=== PATIENT | female | born 1980 | race American Indian/Alaskan Native ===

== ENCOUNTER 2021-05-08 20:44 | Inpatient (IN) | payer MEDICAID ==
[2021-05-08] MEDS ORDERED: LACTATED RINGERS 1,000 ML IV ONE (21:30)
[2021-05-08] MEDS ORDERED: MAGNESIUM SULFATE 4 GM/100 ML BAG IV ONE (22:00)
[2021-05-08] MEDS: BETAMET ACET/BETAMET NA PH 6 MG/ML INJ 5 ML MDV IM SCH (22:33)
[2021-05-08] MEDS: LACTATED RINGERS 1,000 ML IV SCH (22:33)
[2021-05-08 22:49] LABS: Alanine Aminotransferase 5 units/L (7-56); Uric Acid 5.8 mg/dL (3.5-7.6)
[2021-05-08 22:55] LABS: Hepatitis C Virus Antibody Nonreactive (NonReactive)
[2021-05-08] MEDS: MAGNESIUM SULFATE 40GM/1000ML 40 GM/1,000 ML BAG IV SCH (23:00)
[2021-05-08 23:30] LABS: Basophils % (Auto) 0.3 % (0.0-1.8); Eosinophils # (Auto) 0.6 K/mm3 (0.0-0.4); Eosinophils % (Auto) 5.2 % (0.0-4.3); Hematocrit 36.8 % (30.3-42.9); Hemoglobin 12.3 gm/dl (10.1-14.3); Mean Corpuscular HGB Conc 33 % (30-34); Mean Corpuscular Volume 79 fl (79-97); Monocytes # (Auto) 0.9 K/mm3 (0.0-0.8); Monocytes % (Auto) 7.2 % (0.0-7.3); Platelet Count 202 K/mm3 (140-440); Red Blood Count 4.68 M/mm3 (3.65-5.03); Red Cell Distribution Width 14.5 % (13.2-15.2)
[2021-05-09] MEDS ORDERED: FAMOTIDINE 20 MG/2 ML INJ IV SCH
[2021-05-09] MEDS: ONDANSETRON 4 MG/2 ML INJ IV PRN ×3 (00:18→18:13)
[2021-05-09] MEDS: ACETAMINOPHEN 325 MG TAB PO PRN ×3 (00:18→18:13)
[2021-05-09] MEDS: ALUM-MAG HYDROXIDE-SIMETHICONE 200-200-20MG/5ML ORAL LIQD 30 ML PO PRN ×2 (00:18→20:21)
--- NOTE | 2021-05-09 01:00 | Ultrasound Report ---
ULTRASOUND OBSTETRIC INDICATION / CLINICAL INFORMATION: COMPLETE OB SONOGRAM. Clinical Gestational Age (GA): 34 weeks 2 days TECHNIQUE: Transabdominal. COMPARISON: None available. FINDINGS: There is a single intrauterine . Biparietal Diameter = 8.0 cm = 32 weeks, 2 day(s). Head Circumference = 28.5 cm = 31 weeks, 2 day(s). Abdominal Circumference = 24.6 cm = 28 weeks, 6 day(s). Femur Length = 5.7 cm = 30 weeks, 0 day(s). Average Ultrasound Age (AUA) = 30 weeks, 4 day(s). Heart Rate: 141 beats per minute. Estimated Weight in grams (if calculated): 1443 Estimated Weight Growth Percentile (if calculated): Position: cephalic. Cervix: closed. Length in cm (if measured): 3.0 Placenta: Anterior right lateral, grade 1 and free of the os. Amniotic Fluid Volume: decreased Amniotic Fluid Index (KAREN) in cm (if calculated): 5.9. Maternal Adnexa: No significant abnormality. IMPRESSION: 1. Single, living intrauterine with estimated sonographic age of 30 weeks, 4 day(s). 2. Oligohydramnios Signer Name: Fab Dillard MD Signed: 05/09/2021 12:56 AM Workstation Name: [id number]
--- NOTE | 2021-05-09 01:03 | Ultrasound Report ---
ULTRASOUND OBSTETRIC LIMITED ULTRASOUND BIOPHYSICAL PROFILE INDICATION / CLINICAL INFORMATION: WELLBEING. COMPARISON: OB ultrasound same day FINDINGS: BREATHING MOVEMENT = 2 GROSS BODY MOVEMENT = 2 TONE = 2 QUALITATIVE AMNIOTIC FLUID VOLUME = 2 TOTAL BIOPHYSICAL SCORE = 8/8 AMNIOTIC FLUID INDEX (cm) = see separate OB ultrasound report PRESENTATION: Cephalic. HEART RATE (beats per minute): 141 ADDITIONAL FINDINGS: None. IMPRESSION: 1. Biophysical Score = 8/8 Signer Name: Fab Dillard MD Signed: 05/09/2021 12:58 AM Workstation Name: [id number]
[2021-05-09] MEDS: hydrALAZINE 20 MG/1 ML INJ IV PRN ×2 (01:07→01:37)
[2021-05-09 01:40] LABS: Bacteria,Urine 1+ /HPF (Negative); Bilirubin,Urine NEG (Negative); Blood,Urine NEG (Negative); Color,Urine Yellow (Yellow); Mucus,Urine FEW /HPF; Urobilinogen,Urine < 2.0 mg/dL (<2.0)
[2021-05-09 01:47] LABS: Amphetamine Screen,Urine PRESUMPTIVE POSITIVE; Benzodiazepines Screen,Urine PRESUMPTIVE NEGATIVE; Cannabinoid Screen,Urine PRESUMPTIVE POSITIVE; Cocaine Screen,Urine PRESUMPTIVE NEGATIVE; Methadone Screen,Urine PRESUMPTIVE NEGATIVE; Opiate Screen,Urine PRESUMPTIVE NEGATIVE
[2021-05-09] MEDS ORDERED: SODIUM CHLORIDE 0.9% 1000 ML 1,000 ML IV ONE (03:59)
[2021-05-09] MEDS: PRENATAL VIT27-FE FUMARATE-FOLIC ACID VIT TAB PO SCH (10:18)
[2021-05-09] MEDS: LACTATED RINGERS 1,000 ML IV SCH ×2 (10:19→21:54)
--- NOTE | 2021-05-09 13:53 | History and Physical Report ---
History of Present Illness Date of examination: 05/09/21 Date of admission: 05/08/21 21:52 Chief complaint: nausea, vomiting, "something just was wrong with my body" History of present illness: Pt is a 40 year old -[place] female G16 P 1 9 5 10 CLIVE 06/17/21 by 26 wk ultrasound at [facility] per pt who presents with headache, contractions, nausea and vomiting, and an overall sense that something was not right. She has not had care this . The patient notes no history of labor, but that her deliveries were due to induction secondary to "blood pressure." She is unsure if her blood pressure is elevated outside of . She has one child with spina bifida. She also reports anxiety and depression and asks for help managing these issues. Since admission, she has been started on magnesium sulfate for seizure pr ophylaxis, a betamethasone course was initiated, 24 hour urine collection was initiated, and Labetalol 400 mg PO BID was initiated. Past History Past Medical History: asthma, hypertension Past Surgical History: cholecystectomy, other (hiatal hernia repair) Family/Genetic History: hypertension Social history: smoking - Obstetrical History Expected Date of Delivery: 06/17/21 Actual Gestation: 34 Week(s) 3 Day(s) : 16 Para: 10 Hx # Term Pregnancies: 1 Number of Pregnancies: 9 Spontaneous Abortions: 2 Induced : 3 Number of Living Children: 10 Medications and Allergies Allergies Allergy/AdvReac Type Severity Reaction Status Date / Time meloxicam [From Mobic] Allergy Intermediate Hives Verified 05/08/21 23:19 amoxicillin [Amoxicillin] AdvReac Hives Verified 05/08/21 23:20 ketorolac tromethamine AdvReac Hives Verified 05/08/21 23:20 [From Toradol] Penicillins AdvReac Hives Verified 05/08/21 23:20 Home Medications Medication Instructions Recorded Confirmed Last Taken Type Albuterol Mdi (or & Nicu Only) 2 puff IH QID PRN 11/28/13 11/28/13 Unknown History [Proair] Cyclobenzaprine HCl [Flexeril] 10 mg PO TID #20 tablet 11/29/13 Unknown Rx HYDROcodone/APAP 5-325 [[place] 1 each PO Q6HR PRN #10 tablet 03/09/14 Unknown Rx 5/325 mg] Active Meds: Active Medications Acetaminophen (Acetaminophen 325 Mg Tab) 650 mg PO Q4H PRN PRN Reason: Pain MILD(1-3)/Fever >100.5/MURRAY Last Admin: 05/09/21 12:18 Dose: 650 mg Documented by: Al Hydrox/Mg Hydrox/Simethicone (Alum-Mag Hydroxide-Simethicone [id number]/5ml Oral Liqd 30 Ml) 30 ml PO Q4H PRN PRN Reason: Indigestion Last Admin: 05/09/21 00:18 Dose: 30 ml Documented by: Betamethasone Acet/Betameth SodPhos (Betamet Acet/Betamet Na Ph 6 Mg/Ml Inj 5 Ml Mdv) 12 mg IM Q24H [facility] Stop: 05/09/21 22:01 Last Admin: 05/08/21 22:33 Dose: 12 mg Documented by: Docusate Sodium (Docusate Sodium 100 Mg Cap) 100 mg PO Q12H PRN PRN Reason: Constipation Famotidine (Famotidine 20 Mg/2 Ml Inj) 20 mg IV QDAY@2200 [facility] Last Admin: 05/09/21 03:20 Dose: 20 mg Documented by: Hydralazine HCl (Hydralazine 20 Mg/1 Ml Inj) 5 mg IV Q30MIN PRN PRN Reason: Hypertension Last Admin: 05/09/21 01:37 Dose: 5 mg Documented by: Lactated Ringer's (Lactated Ringers) 1,000 mls @ 125 mls/hr IV DIRECT [facility] Last Admin: 05/09/21 10:19 Dose: 75 mls/hr Documented by: Magnesium Sulfate (Magnesium Sulfate 40gm/1000ml) 40 gm in 1,000 mls @ 50 mls/hr IV DIRECT [facility] Last Admin: 05/08/21 23:00 Dose: 2 gm/hr, 50 mls/hr Documented by: Labetalol HCl (Labetalol 200 Mg Tab) 400 mg PO BID [facility] Last Admin: 05/09/21 10:16 Dose: 400 mg Documented by: Multivitamins/Iron/Calcium ( [id number]-Fc Fumarate-Folic Acid Vit Tab) 1 each PO QDAY [facility] Last Admin: 05/09/21 10:18 Dose: 1 each Documented by: Ondansetron HCl (Ondansetron 4 Mg/2 Ml Inj) 4 mg IV Q4H PRN PRN Reason: Nausea And Vomiting Last Admin: 05/09/21 12:18 Dose: 4 mg Documented by: Review of Systems All systems: negative - Vital Signs Vital signs: Vital Signs Temp Pulse BP 98.1 F 81 173/98 05/08/21 21:04 05/08/21 21:04 05/08/21 21:04 Temp Pulse Resp BP Pulse Ox 97.9 F 77 16 117/84 100 05/09/21 07:45 05/09/21 13:47 05/09/21 12:28 05/09/21 13:36 05/09/21 13:47 - Physical Exam Breasts: Positive: deferred Abdomen: Positive: soft (gravid, obese) Uterus: Positive: enlarged (gravid ) Extremities: Positive: normal. Negative: edema - Obstetrical FHR: auscultation normal Uterine Contraction Monitor Mode: External Uterine Contraction Pattern: Absent Uterine Tone Measurement Phase: Resting Results Result Diagrams: 05/08/21 21:48 05/08/21 21:48 Abnormal lab results 05/08/21 05/08/21 Range/Units 21:48 21:48 WBC 11.9 H (4.5-11.0) K/mm3 MCH 26 L (28-32) pg Eos % (Auto) 5.2 H (0.0-4.3) % [place] # (Auto) 0.9 H (0.0-0.8) K/mm3 Eos # (Auto) 0.6 H (0.0-0.4) K/mm3 Seg Neutrophils % 70.3 H (40.0-70.0) % Seg Neutrophils # 8.4 H (1.8-7.7) K/mm3 ALT 5 L (7-56) units/L All other labs normal. Assessment and Plan A: IUP at 34w3d Chronic HTN vs superimposed Preeclampsia Headache Advanced Maternal Age No Care Asthma Obesity Grandmultiparity Anxiety Depression Urine drug screen positive for marijuana and amphetamines GBS Unknown P: Admit to antepartum service Magnesium Sulfate for seizure prophylaxis Betamethasone course for lung maturity 24 hour urine collection MFM consult once 24 hour urine complete Psych consult Continue to monitor maternal and status
[2021-05-09] MEDS: PANTOPRAZOLE 40 MG INJ IV SCH (15:30)
[2021-05-09] MEDS: MAGNESIUM SULFATE 40GM/1000ML 40 GM/1,000 ML BAG IV SCH (18:15)
[2021-05-09] MEDS: BUTALB/ACETAMINOPHEN/CAFFEINE TAB PO PRN (21:41)
[2021-05-09] MEDS: ZOLPIDEM 5 MG TAB PO PRN (21:41)
[2021-05-09] MEDS: BETAMET ACET/BETAMET NA PH 6 MG/ML INJ 5 ML MDV IM SCH (21:45)
[2021-05-09 22:57] LABS: Creatinine,Urine 29.1 mg/dL (0.1-20.0)
[2021-05-10] MEDS: ALUM-MAG HYDROXIDE-SIMETHICONE 200-200-20MG/5ML ORAL LIQD 30 ML PO PRN ×2 (01:46→20:03)
[2021-05-10] MEDS: BUTALB/ACETAMINOPHEN/CAFFEINE TAB PO PRN ×2 (08:10→20:03)
--- NOTE | 2021-05-10 09:24 | Consultation ---
History of Present Illness Consult date: 05/10/21 Requesting physician: KAYDEN URIAS Reason for consult: gestational hypertension History of present illness: Patient HARDIK KING : 78 Attending: Dr. Tong Corn Shucker: Nasima Mitchell M.D. Date of Consultation: Monday, May 10, 2021 Indication for Admission: IUP at ~34 weeks 1 days gestation Chronic hypertension; Superimposed preeclampsia. Elevation in blood pressure Headache No care Oligohydramnios Apparent growth restriction (1443 gm at 34 weeks) Labile blood pressure Proteinuria. Not a candidate for outpatient management. We recommend DELIVERY rather than expectant management. CURRENT PRESENTATION: Thank you for your recent consultation regarding the above named patient. As you are aware, this is a 40 year old para 1,9,5,10 at ~ 34 weeks 1 days based on an CLIVE of 06/17/21) who is currently admitted due to chronic hypertension with possible superimposed preeclampsia. Patient has had NO care. At the time of admission she received magnesium sulfate and Labetalol. The patient 24 hour urine is 395 mg . Following admission the patient had elevated blood pressure and had new onset signs of preeclampsia including headache. PAST OBSTETRICAL HISTORY: See notes in chart. FT x 1 x 9 SAB x 2 VTOP x 3 NO care., PREVIOUS MEDICAL HISTORY: CHTN with history of RIOS History of deliveries x 9 CURRENT MEDICATION: Labetalol (since admission) Magnesium sulfate PHYSICAL EXAM: o Recent BPs 173/98 (prior to Labetalol) o 127/62 (after Labetalol) o See Notes in chart. o HEENT: Negligible periorbital edema o Abdomen: Soft, Gravid, obese, non-distended, fundal height c/w EGA o General: Patient admits to good movement. FHR Tracing: Category 1 Available Admission Labs: See report in chart. WBC: 11.9 HGB: 12.3 HCT: 36.8 PLT: 202 AST: PENDING ALT: PENDING See Recent Notes in chart. Past History Past Medical History: asthma, hypertension Past Surgical History: cholecystectomy, other (hiatal hernia repair) Family/Genetic History: hypertension - Obstetrical History : 15 Medications and Allergies Allergies Allergy/AdvReac Type Severity Reaction Status Date / Time meloxicam [From Mobic] Allergy Intermediate Hives Verified 05/08/21 23:19 amoxicillin [Amoxicillin] AdvReac Hives Verified 05/08/21 23:20 ketorolac tromethamine AdvReac Hives Verified 05/08/21 23:20 [From Toradol] Penicillins AdvReac Hives Verified 05/08/21 23:20 Home Medications Medication Instructions Recorded Confirmed Last Taken Type Albuterol Mdi (or & Nicu Only) 2 puff IH QID PRN 11/28/13 11/28/13 Unknown History [Proair] Cyclobenzaprine HCl [Flexeril] 10 mg PO TID #20 tablet 11/29/13 Unknown Rx HYDROcodone/APAP 5-325 [[place] 1 each PO Q6HR PRN #10 tablet 11/29/13 Unknown Rx 5/325 mg] Active Meds: Active Medications Acetaminophen (Acetaminophen 325 Mg Tab) 650 mg PO Q4H PRN PRN Reason: Pain MILD(1-3)/Fever >100.5/MURRAY Last Admin: 05/09/21 18:13 Dose: 650 mg Documented by: Acetaminophen/Butalbital/Caffeine (Butalb/Acetaminophen/Caffeine Tab) 1 tab PO Q4H PRN PRN Reason: Headache Last Admin: 05/10/21 08:10 Dose: 1 tab Documented by: Al Hydrox/Mg Hydrox/Simethicone (Alum-Mag Hydroxide-Simethicone [phone]/5ml Oral Liqd 30 Ml) 30 ml PO Q4H PRN PRN Reason: Indigestion Last Admin: 05/10/21 01:46 Dose: 30 ml Documented by: Docusate Sodium (Docusate Sodium 100 Mg Cap) 100 mg PO Q12H PRN PRN Reason: Constipation Hydralazine HCl (Hydralazine 20 Mg/1 Ml Inj) 5 mg IV Q30MIN PRN PRN Reason: Hypertension Last Admin: 05/09/21 01:37 Dose: 5 mg Documented by: Lactated Ringer's (Lactated Ringers) 1,000 mls @ 125 mls/hr IV DIRECT DELTA Last Admin: 05/09/21 21:54 Dose: 75 mls/hr Documented by: Magnesium Sulfate (Magnesium Sulfate 40gm/1000ml) 40 gm in 1,000 mls @ 50 mls/hr IV DIRECT DELTA Last Admin: 05/09/21 18:15 Dose: 2 gm/hr, 50 mls/hr Documented by: Labetalol HCl (Labetalol 200 Mg Tab) 400 mg PO BID [facility] Last Admin: 05/09/21 21:39 Dose: 400 mg Documented by: Multivitamins/Iron/Calcium ( [id number]-Yn Fumarate-Folic Acid Vit Tab) 1 each PO QDAY [facility] Last Admin: 05/09/21 10:18 Dose: 1 each Documented by: Ondansetron HCl (Ondansetron 4 Mg/2 Ml Inj) 4 mg IV Q4H PRN PRN Reason: Nausea And Vomiting Last Admin: 05/09/21 18:13 Dose: 4 mg Documented by: Pantoprazole Sodium (Pantoprazole 40 Mg Inj) 40 mg IV QDAY [facility] Last Admin: 05/09/21 15:30 Dose: 40 mg Documented by: Zolpidem Tartrate (Zolpidem 5 Mg Tab) 10 mg PO QHS PRN PRN Reason: Sleep Last Admin: 05/09/21 21:41 Dose: 10 mg Documented by: - Vital Signs Vital signs: Vital Signs Temp Pulse BP 98.1 F 81 173/98 05/08/21 21:04 05/08/21 21:04 05/08/21 21:04 Temp Pulse Resp BP Pulse Ox 98 F 85 18 135/68 98 05/10/21 04:35 05/10/21 08:02 05/10/21 04:35 05/10/21 08:02 05/10/21 08:05 Results Result Diagrams: 05/08/21 21:48 05/08/21 21:48 Abnormal lab results 05/09/21 05/09/21 05/09/21 Range/Units 13:25 13:25 19:03 Magnesium 6.20 H 6.00 H (1.7-2.3) mg/dL Urine Creatinine 29.1 H (0.1-20.0) mg/dL Ur Total Protein 24 Hr (2-200) mg/dL 05/10/21 Range/Units 01:00 Magnesium (1.7-2.3) mg/dL Urine Creatinine (0.1-20.0) mg/dL Ur Total Protein 24 Hr 346.50 H (2-200) mg/dL All other labs normal. Assessment and Plan ULTRASOUND AT [facility]: Cephalic Anterior placenta KAREN: 5.9 (decreased) AUA: 30 weeks. 1443 gm (c/w IUGR) ASSESSMENT IUP at ~34 weeks 1 days gestation Chronic hypertension; Superimposed preeclampsia. Elevation in blood pressure Headache No care Oligohydramnios Apparent growth restriction (1443 gm at 34 weeks) Labile blood pressure Proteinuria. Not a candidate for outpatient management. We recommend DELIVERY rather than expectant management. We recommend DELIVERY rather than expectant management. RECOMMENDATION: 1. At 34+ weeks gestation; it would appear that there minimal benefit to an expectant management protocol to prolong gestation in order to improve outcome without increasing maternal morbidity. 2. We are in agreement with Magnesium sulfate for eclampsia prophylaxis and neuroprotection. 3. Patient has previously received steroids. 4. CONTRAINDICATIONS TO EXPECTANT MANAGEMENT: a. Outpatient elevation of blood pressure on antihypertensive medication b. No care c. Elevated blood pressure d. growth restriction. e. Neurological symptoms (headache, dizziness, blurred vision, etc) 5. Accordingly we would recommend DELIVERY for any signs of severe superimposed preeclampsia (see below). 6. Stabilize blood pressure 7. I've indicated to the patient that there are a number of medical complications which would require early delivery as a general rule for any gestation. I've indicated that unexplained vaginal bleeding, spontaneous labor, -induced hypertension and other complications would require delivery before an elective delivery. 8. I've also indicated the recommendations from the [employer] published in the ACOG committee opinion number 560 regarding early term delivery. As well as recent studies from the Journal Obstetrics and Gynecology published in September [address] Triplett et al indicate that for chronic hypertension with signs of severe preeclampsia should be delivered BEFORE 34 weeks of gestation. 9. Based on the fact that this patient has superimposed preeclampsia with severe symptoms including headache as well as elevated systolic blood pressure we would recommend DELIVERY of this rather than continued expectant management. 10. REFERENCE: Medically indicated late- and early-term deliveries. Committee Opinion No. 560. [employer]. Obstet Gynecol 2013;121:07917. 11. Accordingly we would classify this patient as having severe superimposed preeclampsia and would recommend DELIVERY rather than continued expectant management. 12. As noted above; with a confirmed diagnosis of preeclampsia would recommend proceeding with DELIVERY in this patient in view of the multiple factors which place this at risk for adverse outcome. 13. It would appear the risks for prolongation (ie severe preeclampsia, maternal sezures, placental abruption, HELLP, uteroplacental insufficiency and possible demise in utero) clearly outweigh the the oretical concerns regarding immaturity. Thank you for allowing us to participate in the care of this patient. We look forward to the opportunity to assist in her continued management. If you have any questions, we may be reached at [phone]. Nasima Mitchell M.D.
[2021-05-10] MEDS: LACTATED RINGERS 1,000 ML IV SCH (10:54)
[2021-05-10] MEDS: ACETAMINOPHEN 325 MG TAB PO PRN (11:46)
[2021-05-10] MEDS: PRENATAL VIT27-FE FUMARATE-FOLIC ACID VIT TAB PO SCH (11:47)
--- NOTE | 2021-05-10 12:07 | Consultation ---
History of Present Illness - Reason for Consult Consult date: 05/10/21 Reason for consult: depression - History of Present Psychiatric Illness Samanta Jenkins is a 40y/o female patient who came to the hospital because she wasn't feeling well. The patient says she is from [place] and was traveling. She says says she stopped here to get evaluated because she felt something wasn't right. She says she is 8 months . The patient is crying and says she did not expect to be giving here. She does not live in [place]. She says they told her they needed to take the baby because of her blood pressure. The patient also says she's adjusting to a new relationship. She says her of many years of a heart attack. She says so all of this is adding to her stress. The patient denies SI/HI or hallucinations of any kind. She says "I don't want to hurt myself or hurt nobody." The patient and I had a long talk about things to help her reduce her stress. She stopped crying and states that she felt a lot better after speaking to me. She says she has a history of anxiety and depression. The patient says she takes vistaril, ambien and zoloft. She says she's been compliant with her meds. Encouraged the patient to start therapy. PAST PSYCHIATRIC HISTORY Diagnoses: Depression, anxiety Suicide attempts or Self-harm behavior: Denies Prior psychiatric hospitalizations: Denies Substance Abuse history: Denies Previous psychiatric medications tried: zoloft, ambien, vistaril Outpatient treatment: Yes PAST MEDICAL HISTORY: None reported Family Psychiatric History: Mother " unknown" SOCIAL HISTORY Marital Status: Living Arrangements: with children Employment Status: Unemployed Access to guns/weapons: None reported Education: History of Abuse: None reported Legal History: None reported REVIEW OF SYSTEMS Constitutional: Negative for weight loss ENT: Negative for stridor Respiratory: Negative for cough or hemoptysis All other systems reviewed and are negative MENTAL STATUS EXAMINATION General Appearance and Behavior: Age appropriate, good hygiene, wearing appropriate clothes,good eye contact, cooperative Cooperation: cooperative Mood: overwhelmed Affect and affective range: Tearful Thought Process: Goal directed Thought Content: None Speech: normal tone and pace Suicidal Ideation: Denies Homicidal Ideation: Denies Hallucinations: Denies Delusions: Denies Impulse Control: unimpaired Insight and Judgment: Limited insight and judgement Memory: Normal Attention: Normal Orientation: Alert, oriented Assessment and Plan Generalized Anxiety Disorder Major Depressive Disorder Treatment Continue currently prescribed meds by current provider Start therapy Sitter: Defer to primary Medical: per primary Disposition: Do not recommend acute psychiatric inpatient treatment Will sign off. Thanks. Case staffed with Dr. Flower Medications and Allergies Allergies Allergy/AdvReac Type Severity Reaction Status Date / Time meloxicam [From Mobic] Allergy Intermediate Hives Verified 05/08/21 23:19 amoxicillin [Amoxicillin] AdvReac Hives Verified 05/08/21 23:20 ketorolac tromethamine AdvReac Hives Verified 05/08/21 23:20 [From Toradol] Penicillins AdvReac Hives Verified 05/08/21 23:20 Home Medications Medication Instructions Recorded Confirmed Last Taken Type Albuterol Mdi (or & Nicu Only) 2 puff IH QID PRN 11/28/13 11/28/13 Unknown History [Proair] Cyclobenzaprine HCl [Flexeril] 10 mg PO TID #20 tablet 11/29/13 Unknown Rx HYDROcodone/APAP 5-325 [[place] 1 each PO Q6HR PRN #10 tablet 11/29/13 Unknown Rx 5/325 mg] Active Meds: Active Medications Acetaminophen (Acetaminophen 325 Mg Tab) 650 mg PO Q4H PRN PRN Reason: Pain MILD(1-3)/Fever >100.5/MURRAY Last Admin: 05/10/21 11:46 Dose: 650 mg Documented by: Acetaminophen/Butalbital/Caffeine (Butalb/Acetaminophen/Caffeine Tab) 1 tab PO Q4H PRN PRN Reason: Headache Last Admin: 05/10/21 08:10 Dose: 1 tab Documented by: Al Hydrox/Mg Hydrox/Simethicone (Alum-Mag Hydroxide-Simethicone [id number]/5ml Oral Liqd 30 Ml) 30 ml PO Q4H PRN PRN Reason: Indigestion Last Admin: 05/10/21 01:46 Dose: 30 ml Documented by: Docusate Sodium (Docusate Sodium 100 Mg Cap) 100 mg PO Q12H PRN PRN Reason: Constipation Hydralazine HCl (Hydralazine 20 Mg/1 Ml Inj) 5 mg IV Q30MIN PRN PRN Reason: Hypertension Last Admin: 05/09/21 01:37 Dose: 5 mg Documented by: Lactated Ringer's (Lactated Ringers) 1,000 mls @ 125 mls/hr IV DIRECT DELTA Last Admin: 05/10/21 10:54 Dose: 75 mls/hr Documented by: Magnesium Sulfate (Magnesium Sulfate 40gm/1000ml) 40 gm in 1,000 mls @ 50 mls/hr IV DIRECT DELTA Last Admin: 05/09/21 18:15 Dose: 2 gm/hr, 50 mls/hr Documented by: Labetalol HCl (Labetalol 200 Mg Tab) 400 mg PO BID [facility] Last Admin: 05/10/21 09:47 Dose: 400 mg Documented by: Multivitamins/Iron/Calcium ( Sql58-Cr Fumarate-Folic Acid Vit Tab) 1 each PO QDAY [facility] Last Admin: 05/10/21 11:47 Dose: 1 each Documented by: Ondansetron HCl (Ondansetron 4 Mg/2 Ml Inj) 4 mg IV Q4H PRN PRN Reason: Nausea And Vomiting Last Admin: 05/09/21 18:13 Dose: 4 mg Documented by: Pantoprazole Sodium (Pantoprazole 40 Mg Inj) 40 mg IV QDAY [facility] Last Admin: 05/09/21 15:30 Dose: 40 mg Documented by: Zolpidem Tartrate (Zolpidem 5 Mg Tab) 10 mg PO QHS PRN PRN Reason: Sleep Last Admin: 05/09/21 21:41 Dose: 10 mg Documented by: Mental Status Exam - Vital signs Last Vital Signs Temp 98 F 05/10/21 04:35 Pulse 85 05/10/21 08:02 Resp 18 05/10/21 04:35 BP 135/68 05/10/21 08:02 Pulse Ox 98 05/10/21 08:05 Results Result Diagrams: 05/08/21 21:48 05/08/21 21:48 Abnormal lab results 05/09/21 05/09/21 05/09/21 Range/Units 13:25 13:25 19:03 Magnesium 6.20 H 6.00 H (1.7-2.3) mg/dL Urine Creatinine 29.1 H (0.1-20.0) mg/dL Ur Total Protein 24 Hr (2-200) mg/dL 05/10/21 Range/Units 01:00 Magnesium (1.7-2.3) mg/dL Urine Creatinine (0.1-20.0) mg/dL Ur Total Protein 24 Hr 346.50 H (2-200) mg/dL All other labs normal.
[2021-05-10] MEDS ORDERED: NALOXONE 0.4 MG/1 ML INJ IV PRN (13:56)
[2021-05-10] MEDS ORDERED: OXYTOCIN 10 UNIT/1 ML INJ IM PRN (13:56)
[2021-05-10] MEDS ORDERED: CARBOPROST TROMETHAMINE 250 MCG/1 ML INJ IM PRN (13:56)
[2021-05-10] MEDS ORDERED: miSOPROStol 200 MCG TAB PR PRN (13:56)
[2021-05-10] MEDS ORDERED: fentaNYL 100 MCG/2 ML INJ IV PRN (13:56)
[2021-05-10] MEDS ORDERED: ePHEDrine SULFATE 50 MG/1 ML INJ IV PRN (13:56)
[2021-05-10] MEDS ORDERED: BUTORPHANOL 2 MG/1 ML INJ IV PRN (13:56)
[2021-05-10] MEDS ORDERED: TERBUTALINE 1 MG/1 ML INJ SUB-Q PRN (13:56)
[2021-05-10] MEDS ORDERED: LOPERAMIDE 2 MG CAP PO PRN (13:56)
[2021-05-10] MEDS ORDERED: LIDOCAINE (2%) 20 MG/1 ML VIAL 20 ML MDV INFILTRATI ONE (13:56)
[2021-05-10] MEDS ORDERED: MINERAL OIL 30 ML ORAL LIQD PO PRN (13:56)
[2021-05-10] MEDS ORDERED: LACTATED RINGERS 1,000 ML IV SCH (14:00)
[2021-05-10] MEDS ORDERED: OXYTOCIN DRIP 30 UNITS/500 ML BAG IV SCH ×2 (14:00)
[2021-05-10] MEDS ORDERED: VANCOMYCIN/NS 1 GM/250 ML 1 GM/250 ML BAG IV SCH (15:00)
[2021-05-10] MEDS ORDERED: DINOPROSTONE 10 MG VAG SUPP VG ONE (16:00)
--- NOTE | 2021-05-10 17:46 | Anesthesia Consultation ---
Anesthesia Consult and Med Hx Date of service: 05/10/21 - Airway Anesthetic Teeth Evaluation: Good ROM Head & Neck: Adequate Mental/Hyoid Distance: Adequate Mallampati Class: Class III Intubation Access Assessment: Probably Good - Pulmonary Exam CTA: Yes - Cardiac Exam Cardiac Exam: RRR - Pre-Operative Health Status ASA Pre-Surgery Classification: ASA2 Proposed Anesthetic Plan: Epidural - Pulmonary Hx Smoking: Yes Hx Asthma: Yes COPD: No Hx Pneumonia: No Hx Sleep Apnea: No - Cardiovascular System Hx Hypertension: Yes (chronic htn) Hx Heart Attack/AMI: No Hx Angina: No - Central Nervous System Hx Seizures: No Hx Psychiatric Problems: Yes (anxiety) - Gastrointestinal Hx Gastroesophageal Reflux Disease: No - Endocrine Hx Renal Disease: No Hx End Stage Renal Disease: No Hx Liver Disease: No Hx Insulin Dependent Diabetes: No Hx Non-Insulin Dependent Diabetes: No Hx Hypothyroidism: No Hx Hyperthyroidism: No - Hematic Hx Anemia: No Hx Sickle Cell Disease: No - Other Systems Hx Alcohol Use: No Hx Obesity: Yes - Additional Comments Anesthesia Medical History Comments: 2 epidurals that didn't work and 1 that resulted in a wet tap.
[2021-05-10] MEDS ORDERED: MAGNESIUM SULFATE 4 GM/100 ML BAG IV ONE ×2 (17:59→19:00)
[2021-05-10] MEDS ORDERED: MAGNESIUM SULFATE 40GM/1000ML 40 GM/1,000 ML BAG IV SCH (19:00)
[2021-05-10] MEDS: MAGNESIUM SULFATE 40GM/1000ML 40 GM/1,000 ML BAG IV SCH (19:00)
[2021-05-10 19:18] LABS: Alanine Aminotransferase 6 units/L (7-56); Uric Acid 5.4 mg/dL (3.5-7.6)
[2021-05-10 19:29] LABS: Hematocrit 36.5 % (30.3-42.9); Mean Corpuscular HGB Conc 33 % (30-34); Mean Corpuscular Volume 80 fl (79-97); Platelet Count 233 K/mm3 (140-440); Red Blood Count 4.56 M/mm3 (3.65-5.03); Red Cell Distribution Width 15.1 % (13.2-15.2)
[2021-05-10] MEDS: hydrALAZINE 20 MG/1 ML INJ IV PRN (20:04)
[2021-05-10] MEDS: ZOLPIDEM 5 MG TAB PO PRN (20:11)
[2021-05-10] MEDS: PANTOPRAZOLE 40 MG INJ IV SCH (21:41)
[2021-05-11] MEDS ORDERED: BICITRA ORAL LIQD 30ML PO ONE (01:03)
[2021-05-11] MEDS ORDERED: GENTAMICIN 0 MG in SODIUM CHLORIDE 0.9% 100 ML IV ONE (01:03)
[2021-05-11] MEDS ORDERED: METOCLOPRAMIDE 10 MG/2 ML INJ IV ONE (01:03)
[2021-05-11] MEDS ORDERED: FAMOTIDINE 20 MG/2 ML INJ IV ONE (01:03)
--- NOTE | 2021-05-11 01:03 | Event Note ---
Date: 05/11/21 Notified by RN with concern for tracing. Tracing reviewed. Category 2 tracing with near absent variability and deep variable decels to the 60s. Plan to proceed with primary section for non-reassuring status.
[2021-05-11] MEDS ORDERED: ONDANSETRON 4 MG/2 ML INJ IV PRN (01:15)
[2021-05-11] MEDS ORDERED: LACTATED RINGERS 1,000 ML IV SCH (01:15)
[2021-05-11] MEDS ORDERED: NALOXONE 0.4 MG/1 ML INJ IV PRN ×2 (01:15→03:39)
[2021-05-11] MEDS ORDERED: NalbUPHINE 10 MG/1 ML INJ IV PRN (01:15)
[2021-05-11] MEDS ORDERED: PROMETHAZINE 25 MG RECT SUPP PR PRN (01:15)
[2021-05-11] MEDS ORDERED: diphenhydrAMINE 50 MG/ML VIAL IV PRN (01:15)
--- NOTE | 2021-05-11 01:15 | Anesthesia Day of Surgery ---
Anesthesia Day of Surgery - Day of Surgery Patient Examined: Yes Patient H&P Reviewed: Yes Patient is NPO: Yes Beta Blockers: No Cardiac Clearance: No Pulmonary Clearance: No Gregory's Test: N/A
[2021-05-11] MEDS ORDERED: ONDANSETRON 4 MG/2 ML INJ ONE (01:22)
[2021-05-11] MEDS ORDERED: BUPIVACAINE/PF (0.5%) 5 MG/1 ML 30 ML VIAL INFILTRATI ONE (01:35)
[2021-05-11] MEDS ORDERED: GENTAMICIN/NS 120MG/100ML 120 MG/100 ML BAG IV ONE (02:00)
[2021-05-11] MEDS ORDERED: OXYTOCIN DRIP 30 UNITS/500 ML BAG IV SCH ×2 (02:00→04:00)
[2021-05-11] MEDS ORDERED: KETAMINE/STERILE WATER 50 MG/ML SYRINGE ONE (02:12)
[2021-05-11] MEDS ORDERED: WATER FOR IRRIG STERILE 1,500 ML BOTTLE IR ONE (02:19)
[2021-05-11] MEDS ORDERED: SODIUM CHLORIDE 0.9% IRR 1,500 ML BOTTLE IR ONE (02:19)
[2021-05-11] MEDS ORDERED: OXYTOCIN 10 UNIT/1 ML INJ ONE (02:28)
[2021-05-11] MEDS ORDERED: ePHEDrine SULFATE 50 MG/1 ML INJ ONE (02:28)
[2021-05-11] MEDS ORDERED: PHENYLEPHRINE/NS 1,000 MCG/10 ML SYRINGE (OR USE) IV ONE (02:28)
[2021-05-11] MEDS ORDERED: MIDAZOLAM 2 MG/2 ML INJ ONE (02:35)
--- NOTE | 2021-05-11 03:27 | Procedure Note ---
OB Delivery Note - Delivery Date of Delivery: 05/11/21 Surgeon: KAYDEN URIAS Estimated blood loss: other (570 mL) - Section Preop diagnosis: nonreassuring FHR tracing Postop diagnosis: same section procedure: section, primary low transverse Disposition: PACU Narrative: Please see operative report - Infant A at 1 minute: 2 at 5 minutes: 8 Infant Gender: Male (1580g (3lb 8oz) @ 0231 am)
--- NOTE | 2021-05-11 03:29 | Operative Report ---
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 Anesthesia: Regional Findings: 1) Viable male , Apgars 2 and 8, weight 1580 g, (3 lb 8 oz) in cephalic presentation 2) Normal-appearing uterus ovaries and tubes Estimated blood loss: 570 mL by QBL IV fluids: 700 mL Urine output: 250 mL, clear at the end of the procedure Drains: Smith to gravity Specimens: Placenta to pathology Complications: None. Counts correct x 3 Disposition: Stable to PACU Indication for procedure: Pt is a 40 year old -Greek G16 P 1 9 5 10 at presents at 34w5d with chronic hypertension with superimposed preeclampsia and recommendation for delivery. During her induction, the tracing developed minimal variability with deep variable decelerations to the 60s remote from delivery. The decision was made to proceed to section. Operation in detail: After the risks, benefits, alternatives and complications were explained to the patient she gave informed consent for the procedure. She was subsequently taken to the operating room where regional anesthesia was noted to be adequate. She was placed in the dorsal supine position with leftward tilt and prepped and draped in a normal sterile fashion. heart tones were noted prior to incision. A timeout was performed. A Pfannenstiel skin incision was made with the knife and carried down to the layer of the fascia with the Bovie. The fascia was incised in the midline and the fascial incision was extended bilaterally with the Bovie. The fascial incision was then stretched. The rectus muscles were then in the midline and partially transected for adequate visualization. The peritoneum was then entered bluntly. The peritoneal incision was extended with good visualization of the bladder. The peritoneal incision was then stretched. An Andry retractor was placed. The bladder blade was then placed. The vesicouterine peritoneum was grasped with smooth pick ups and incised with Metzenbaum scissors . A bladder flap was then created digitally and the bladder blade was replaced. A transverse incision was made in the lower uterine segment with a knife and extended bilaterally with the bandage scissors. Amniotomy was performed with egress of clear fluid. head delivered with ease, followed by shoulders and body. bulb suctioned at delivery. Cord clamped and cut. handed to NICU staff in attendance. The placenta was then delivered manually. The uterus was then exteriorized and cleared of all clots and debris. The hy sterotomy was then reapproximated with 0 Monocryl in a running locked fashion. A second layer of the same suture was used in imbricating fashion. The hysterotomy was inspected and hemostasis was noted. The gutters were irrigated and cleared of all clots and debris. The hysterotomy was again inspected and noted to be hemostatic. The uterus was placed back into the peritoneal cavity. Surgicel was placed over the hysterotomy. The Andry retractor was removed. The peritoneum was reapproximated with 0 Monocryl in a running fashion incorporating the rectus muscles. Surgicel was placed over the rectus muscles. The fascia was reapproximated with 0 Vicryl in a running fashion. The subcutaneous tissue was reapproximated with 3-0 Vicryl in a running fashion. The skin was reapproximated with 3-0 Monocryl in a subcuticular fashion. The incision was then covered with steri strips and a pressure dressing. The procedure was then ended. The patient tolerated the procedure well and was taken to the PACU in stable condition. All instrument, lap, and needle counts were correct 3.
[2021-05-11] MEDS ORDERED: IBUPROFEN 800 MG TAB PO PRN (03:39)
[2021-05-11] MEDS ORDERED: WITCH HAZEL/ GLYCERIN PAD TP PRN (03:39)
[2021-05-11] MEDS ORDERED: LANOLIN/ZINC/DIMETHICONE (LANSINOH) 7 GM TP PRN (03:39)
[2021-05-11] MEDS ORDERED: SIMETHICONE 80 MG CHEW TAB PO PRN (03:39)
[2021-05-11] MEDS ORDERED: HYDROmorphone 1 MG/1 ML INJ IV PRN ×2 (03:39→03:43)
[2021-05-11] MEDS ORDERED: MAGNESIUM HYDROXIDE (MOM) ORAL LIQD UDC PO PRN (03:39)
--- NOTE | 2021-05-11 03:45 | Progress Note ---
Spinal Anesthesia Block - Spinal Anesthesia Block Start Time: 01:45 Stop Time: 02:00 Performed by:: DAVION COBB Procedure: Spinal anesthesia block is being performed for [C/S]. H&P, labs have been reviewed. Patient's questions and concerns have been answered. Informed consent has been performed. Timeout has was performed. Patient in sitting position on side of bed. Sterile prep and drape was performed. 3 mL 1% lidocaine skin wheal at L [3]-L [4]. Needle introducer advanced. 25-gauge spinal needle advanced, [+] CSF [-] blood. [Marcaine 10mg and Precedex 5mcg] Spinal dose was given. All needles removed. Patient tolerated procedure well.
[2021-05-11] MEDS ORDERED: D5W/LACTATED RINGERS 1,000 ML IV SCH (04:00)
[2021-05-11] MEDS: HYDROmorphone 1 MG/1 ML INJ IV PRN ×4 (06:43→19:43)
--- NOTE | 2021-05-11 07:14 | Post Anesthesia Evaluation ---
- Post Anesthesia Evaluation Patient Participated: Yes Airway Patent: Yes Stable Respiratory Function: Yes Nausea/Vomiting: No Temp > 96.8F: Yes Pain Manageable: Yes Adequeate Hydration: Yes Anesthesia Complications: No Block Receding Appropriately: Yes Patient on Ventilator: No
[2021-05-11] MEDS: oxyCODONE /ACETAMINOPHEN 5-325MG TAB PO PRN ×4 (08:52→23:36)
[2021-05-11] MEDS: PRENATAL VIT27-FE FUMARATE-FOLIC ACID VIT TAB PO SCH (10:39)
[2021-05-11] MEDS: PANTOPRAZOLE 40 MG INJ IV SCH (10:39)
[2021-05-11] MEDS: CLINDAMYCIN 600 MG/50 mL 600 MG/50 ML BAG IV SCH ×2 (10:39→17:53)
[2021-05-11] MEDS: BUTALB/ACETAMINOPHEN/CAFFEINE TAB PO PRN (13:34)
[2021-05-11] MEDS: PROMETHAZINE 25 MG TAB PO PRN (13:55)
[2021-05-11 14:51] LABS: Hematocrit 32.2 % (30.3-42.9); Hemoglobin 10.7 gm/dl (10.1-14.3)
[2021-05-11] MEDS: MAGNESIUM SULFATE 40GM/1000ML 40 GM/1,000 ML BAG IV SCH (17:52)
[2021-05-11] MEDS: ZOLPIDEM 5 MG TAB PO PRN (21:17)
[2021-05-12] MEDS ORDERED: MEASLES, MUMPS & RUBELLA 12,500 UNIT/0.5 ML VACCINE SUB-Q ONE (03:40)
[2021-05-12] MEDS: HYDROmorphone 1 MG/1 ML INJ IV PRN (03:56)
[2021-05-12] MEDS ORDERED: TETANUS,DIPH,PERTUSS(ACELL) VACCINE 0.5 ML SYRINGE IM ONE (06:00)
[2021-05-12] MEDS: PROMETHAZINE 25 MG TAB PO PRN (08:11)
[2021-05-12] MEDS: oxyCODONE /ACETAMINOPHEN 5-325MG TAB PO PRN ×3 (08:12→20:35)
[2021-05-12] MEDS: DOCUSATE SODIUM 100 MG CAP PO PRN (13:49)
[2021-05-12] MEDS: PRENATAL VIT27-FE FUMARATE-FOLIC ACID VIT TAB PO SCH (13:51)
--- NOTE | 2021-05-12 15:45 | Progress Note ---
Assessment and Plan A: POD#1 s/p primary section at 34w3d Chronic HTN with superimposed Preeclampsia s/p Magnesium Sulfate x 24 hrs Advanced Maternal Age No Care Asthma Obesity Grandmultiparity Anxiety Depression Urine drug screen positive for marijuana and amphetamines GBS Unknown P: Routine postop care Restart Zoloft and Xanax Closely monitor clinical status Subjective - Subjective Date of service: 05/12/21 Principal diagnosis: s/p primary at 34 wks, cHTN with superimposed PreE, No PNC, Interval history: Pt reports passing some clots this morning, but that her bleeding is otherwise been minimal. She is very anxious and emotional regarding the fact that her baby is in the NICU and that her urine drug screen is positive. She is asking for medication to help with her anxiety and depression. Patient reports: appetite normal, voiding normally, flatus, pain poorly controlled, ambulating normally, no bowel movement [place]: in NICU Objective - Vital Signs Latest vital signs: Vital Signs Temp Pulse Resp BP BP Pulse Ox Pulse Ox 05/12/21 06:12 98.8 F 79 18 145/86 100 05/12/21 05:26 88 78 L 05/12/21 05:24 82 98 05/12/21 05:20 82 145/89 05/12/21 05:19 79 99 05/12/21 05:14 75 99 05/12/21 05:09 76 98 05/12/21 05:06 85 92 05/12/21 05:04 77 149/87 98 05/12/21 04:59 82 99 05/12/21 04:54 77 99 05/12/21 04:52 75 156/109 05/12/21 04:50 81 92 05/12/21 04:49 79 97 05/12/21 04:44 84 100 05/12/21 04:39 85 94 05/12/21 04:34 75 98 05/12/21 04:32 77 92 05/12/21 04:29 68 97 05/12/21 04:26 20 05/12/21 04:24 68 97 05/12/21 04:22 68 115/63 05/12/21 04:19 71 99 05/12/21 04:14 67 98 05/12/21 04:09 70 96 05/12/21 04:04 78 99 08/20/21 03:59 74 98 08/20/21 03:56 18 08/20/21 03:54 77 99 08/20/21 03:52 71 150/67 08/20/21 03:49 86 97 08/20/21 03:44 70 98 08/20/21 03:39 70 99 08/20/21 03:34 70 98 08/20/21 03:29 69 99 08/20/21 03:24 73 97 08/20/21 03:22 71 159/76 08/20/21 03:19 73 97 08/20/21 03:14 70 100 08/20/21 03:09 69 100 08/20/21 03:04 68 99 08/20/21 02:59 71 100 08/20/21 02:54 67 100 08/20/21 02:52 67 159/81 08/20/21 02:49 77 99 08/20/21 02:44 72 98 08/20/21 02:39 71 96 08/20/21 02:34 71 97 08/20/21 02:29 71 98 08/20/21 02:24 70 97 08/20/21 02:22 69 128/61 08/20/21 02:19 71 98 08/20/21 02:14 71 98 08/20/21 02:09 71 99 08/20/21 02:04 78 97 08/20/21 01:59 71 98 08/20/21 01:54 73 99 08/20/21 01:52 70 141/68 08/20/21 01:49 72 98 08/20/21 01:44 72 99 08/20/21 01:39 74 99 08/20/21 01:34 70 99 08/20/21 01:29 72 99 08/20/21 01:24 70 97 08/20/21 01:22 66 146/70 08/20/21 01:19 79 98 08/20/21 01:14 69 99 08/20/21 01:09 78 97 08/20/21 01:08 90 92 08/20/21 01:04 67 98 08/20/21 00:59 72 98 08/20/21 00:54 71 97 08/20/21 00:52 67 163/76 08/20/21 00:49 73 97 08/20/21 00:44 71 99 08/20/21 00:39 67 99 20/21 00:36 18 2021 00:34 70 100 20/21 00:29 78 99 20/21 00:24 79 97 2021 00:22 70 147/67 20/21 00:19 78 98 20/21 00:14 69 99 2021 00:09 71 99 20 00:04 72 98 20 00:00 97.9 F 20 05/11/21 23:59 69 99 19/21 23:54 71 99 05/11/21 23:52 71 134/63 05/11/21 23:49 72 100 05/11/21 23:44 73 98 05/11/21 23:39 71 99 05/11/21 23:36 20 05/11/21 23:34 71 100 05/11/21 23:29 78 99 05/11/21 23:24 80 99 05/11/21 23:23 80 93 05/11/21 23:19 81 98 05/11/21 23:14 80 97 05/11/21 23:09 86 98 05/11/21 23:04 75 97 05/11/21 22:59 75 97 05/11/21 22:54 75 98 05/11/21 22:52 75 140/84 05/11/21 22:49 77 100 05/11/21 22:44 81 96 05/11/21 22:39 77 98 05/11/21 22:34 81 97 05/11/21 22:29 74 99 05/11/21 22:24 81 98 05/11/21 22:22 76 147/85 05/11/21 22:19 80 99 05/11/21 22:14 76 99 05/11/21 22:09 78 99 05/11/21 22:04 75 100 21 21:59 79 99 21 21:54 75 99 21 21:52 68 139/86 21 21:49 73 98 05/11/21 21:44 74 100 1921 21:39 78 99 21 21:36 74 93 05/11/21 21:34 79 100 05/11/21 21:29 72 99 05/11/21 21:24 75 99 05/11/21 21:19 74 100 05/11/21 21:14 78 98 05/11/21 21:09 76 99 05/11/21 21:08 76 92 05/11/21 21:04 70 100 05/11/21 21:01 75 150/65 05/11/21 20:59 80 100 05/11/21 20:54 70 100 05/11/21 20:49 79 98 05/11/21 20:44 79 99 05/11/21 20:39 80 98 05/11/21 20:34 73 99 05/11/21 20:32 69 86 05/11/21 20:29 83 100 05/11/21 20:24 77 99 05/11/21 20:19 80 99 05/11/21 20:14 75 100 05/11/21 20:13 18 05/11/21 20:09 76 99 05/11/21 20:04 77 99 05/11/21 20:00 98.4 F 20 100 05/11/21 19:59 68 100 05/11/21 19:54 74 100 05/11/21 19:52 82 137/95 05/11/21 19:49 79 100 05/11/21 19:44 71 100 05/11/21 19:43 20 05/11/21 19:39 76 98 05/11/21 19:34 76 100 05/11/21 19:29 71 99 05/11/21 19:24 77 97 05/11/21 19:22 80 140/84 05/11/21 19:20 79 78 L 05/11/21 19:19 73 97 05/11/21 19:14 69 99 05/11/21 19:09 75 98 05/11/21 19:06 78 92 05/11/21 19:04 70 99 05/11/21 19:01 18 05/11/21 18:59 78 99 05/11/21 18:56 71 93 05/11/21 18:53 69 97 21 18:52 78 126/84 05/11/21 18:48 74 97 21 18:43 70 97 05/11/21 18:38 70 98 05/11/21 18:33 73 98 05/11/21 18:28 72 97 05/11/21 18:23 73 97 05/11/21 18:22 73 141/84 05/11/21 18:18 70 97 05/11/21 18:13 73 99 05/11/21 18:08 69 100 05/11/21 18:06 66 152/87 05/11/21 18:03 73 100 05/11/21 18:00 18 99 05/11/21 17:58 73 100 05/11/21 17:53 83 100 05/11/21 17:50 80 90 05/11/21 17:48 82 100 05/11/21 17:43 79 100 05/11/21 17:38 63 99 05/11/21 17:33 66 100 05/11/21 17:28 69 100 05/11/21 17:23 64 100 05/11/21 17:22 66 119/64 05/11/21 17:18 67 100 05/11/21 17:13 76 99 05/11/21 17:11 79 0 L 05/11/21 17:08 63 99 05/11/21 17:05 97.6 F 20 05/11/21 17:04 77 92 05/11/21 17:03 76 91 05/11/21 16:59 65 147/78 05/11/21 16:58 71 96 05/11/21 16:53 73 98 05/11/21 16:52 73 155/96 05/11/21 16:48 70 98 05/11/21 16:44 71 156/85 05/11/21 16:43 71 182/93 98 05/11/21 16:38 74 97 05/11/21 16:33 73 99 05/11/21 16:30 20 99 05/11/21 16:28 77 98 05/11/21 16:23 76 97 05/11/21 16:22 71 192/86 05/11/21 16:18 73 99 05/11/21 16:13 70 97 05/11/21 16:12 75 84 05/11/21 16:08 75 97 05/11/21 16:03 70 98 05/11/21 15:58 72 96 05/11/21 15:53 69 99 05/11/21 15:52 64 142/63 05/11/21 15:48 71 99 05/11/21 15:47 77 94 Intake and Output 05/12/21 05/12/21 05/12/21 06:59 14:59 22:59 Intake Total 240 Output Total 1800 500 Balance -1560 -500 Intake: Oral 240 Output: Urine 1800 500 Indwelling Catheter 1800 Void 500 Other: Total, Intake Amount 240 Total, Output Amount 900 500 # Voids Void 1 - Exam Breasts: Present: deferred Abdomen: Present: soft. Absent: distention Uterus: Present: fundal height at umbilicus Extremities: Present: edema (trace) Incision: Present: dressed - Labs Labs: Abnormal lab results 05/11/21 05/12/21 05/12/21 Range/Units 20:33 03:09 09:19 Magnesium 7.20 H 7.50 H 4.60 H (1.7-2.3) mg/dL
[2021-05-12] MEDS ORDERED: ALPRAZolam 0.5 MG TAB PO PRN (15:47)
[2021-05-12] MEDS: SERTRALINE 50 MG TAB PO SCH (18:33)
[2021-05-12] MEDS: PANTOPRAZOLE 40 MG INJ IV SCH (18:52)
[2021-05-12] MEDS: ZOLPIDEM 5 MG TAB PO PRN (21:05)
[2021-05-12] MEDS: ALPRAZolam 0.25 MG TAB PO PRN (23:15)
[2021-05-13] MEDS: oxyCODONE /ACETAMINOPHEN 5-325MG TAB PO PRN ×3 (02:58→15:58)
--- NOTE | 2021-05-13 14:23 | Progress Note ---
Assessment and Plan A: POD#2 s/p primary section at 34w3d Chronic HTN with superimposed Preeclampsia s/p Magnesium Sulfate x 24 hrs Advanced Maternal Age No Care Asthma Obesity Grandmultiparity Anxiety, now on Xanax PRN Depression, now on Zoloft Urine drug screen positive for marijuana and amphetamines GBS Unknown P: Routine postop care Closely monitor clinical status Subjective - Subjective Date of service: 05/13/21 Principal diagnosis: POD#2 s/p primary at 34 wks, cHTN with superimposed PreE, No PNC, Interval history: Pt still reports anxiety but her bleeding is better today. + flatus. No bowel movement. Patient reports: appetite normal, voiding normally, flatus, pain poorly controlled, no bowel movement [place]: in NICU Objective - Vital Signs Latest vital signs: Vital Signs Temp Pulse Resp BP BP Pulse Ox Pulse Ox 05/13/21 12:42 98.5 F 80 20 163/94 100 05/13/21 08:29 98.4 F 83 20 139/86 100 05/13/21 04:30 98.8 F 79 16 132/72 05/13/21 00:00 98.6 F 82 18 143/74 05/12/21 20:55 100 H 135/80 99 05/12/21 20:35 99 05/12/21 19:01 98.1 F 108 H 18 139/71 99 05/12/21 15:53 100 Intake and Output 05/12/21 05/13/21 05/13/21 22:59 06:59 14:59 Intake Total 120 500 840 Output Total 300 1860 Balance -180 500 -1020 Intake: Oral 120 200 480 Intake, Free Water 300 360 Output: Urine 300 1860 Void 300 1860 Other: Total, Intake Amount 120 200 480 Total, Output Amount 300 960 # Voids Void 1 1 3 - Exam Breasts: Present: deferred Abdomen: Present: soft (obese ) Uterus: Present: fundal height below umbilicus Extremities: Present: edema (trace) Incision: Present: dressed
[2021-05-13] MEDS: NIFEdipine XL 30 MG TAB PO SCH (15:57)
[2021-05-13] MEDS: PANTOPRAZOLE 40 MG TAB PO SCH (15:57)
[2021-05-13] MEDS: SERTRALINE 50 MG TAB PO SCH (16:03)
[2021-05-13] MEDS: ALPRAZolam 0.25 MG TAB PO PRN (21:23)
[2021-05-13] MEDS: ZOLPIDEM 5 MG TAB PO PRN (21:24)
[2021-05-14] MEDS: oxyCODONE /ACETAMINOPHEN 5-325MG TAB PO PRN ×4 (03:50→20:54)
[2021-05-14] MEDS: DOCUSATE SODIUM 100 MG CAP PO PRN (03:55)
[2021-05-14] MEDS: PRENATAL VIT27-FE FUMARATE-FOLIC ACID VIT TAB PO SCH ×2 (10:00→15:01)
[2021-05-14] MEDS: PANTOPRAZOLE 40 MG TAB PO SCH (10:00)
[2021-05-14] MEDS: NIFEdipine XL 30 MG TAB PO SCH ×2 (10:00→15:00)
[2021-05-14] MEDS: ZOLPIDEM 5 MG TAB PO PRN (14:56)
--- NOTE | 2021-05-14 14:56 | Progress Note ---
Assessment and Plan A: POD#3 s/p primary section at 34w3d Chronic HTN with superimposed Preeclampsia s/p Magnesium Sulfate x 24 hrs; On Procardia XL 30 mg PO daily Advanced Maternal Age No Care Asthma Obesity Grandmultiparity Anxiety, now on Xanax PRN Depression, now on Zoloft Urine drug screen positive for marijuana and amphetamines GBS Unknown P: Routine postop care Closely monitor clinical status Increase Procardia XL to 60 mg PO once Subjective - Subjective Date of service: 05/14/21 Principal diagnosis: POD#3 s/p primary at 34 wks, cHTN with superimposed PreE, No PNC, Interval history: Pt still reports anxiety but her bleeding is better today. + flatus. + bowel movement. Her blood pressure remains elevated. Patient reports: appetite normal, voiding normally, pain well controlled, flatus, bowel movement, ambulating normally [place]: in NICU Objective - Vital Signs Latest vital signs: Vital Signs Temp Pulse Resp BP Pulse Ox Pulse Ox 05/14/21 14:05 98.0 F 127 H 20 150/88 99 05/14/21 08:40 97.8 F 87 20 140/89 96 05/14/21 05:00 111 H 151/87 96 05/14/21 00:23 98.0 F 115 H 20 128/93 99 05/13/21 20:15 99 05/13/21 18:03 99 05/13/21 16:23 99 05/13/21 16:21 98.4 F 97 H 20 156/86 100 Intake and Output 05/13/21 05/14/21 05/14/21 22:59 06:59 14:59 Intake Total 360 600 480 Balance 360 600 480 Intake: Oral 360 600 480 Other: Total, Intake Amount 360 240 360 # Voids Void 1 1 1 # Bowel Movements 1 - Exam Breasts: Present: deferred Abdomen: Present: soft. Absent: distention Uterus: Present: fundal height below umbilicus Extremities: Present: edema (trace) Incision: Present: intact (with steristrips)
[2021-05-14] MEDS: SERTRALINE 50 MG TAB PO SCH (14:58)
[2021-05-14] MEDS ORDERED: NIFEdipine XL 30 MG TAB PO SCH (15:00)
[2021-05-14] MEDS ORDERED: NIFEdipine XL 30 MG TAB PO ONE (16:00)
[2021-05-14 16:21] LABS: Hematocrit 33.6 % (30.3-42.9); Hemoglobin 11.4 gm/dl (10.1-14.3); Mean Corpuscular HGB Conc 34 % (30-34); Mean Corpuscular Volume 81 fl (79-97); Platelet Count 348 K/mm3 (140-440); Red Blood Count 4.17 M/mm3 (3.65-5.03); Red Cell Distribution Width 14.9 % (13.2-15.2)
[2021-05-14] MEDS: ALPRAZolam 0.5 MG TAB PO PRN (22:40)
[2021-05-15] MEDS: oxyCODONE /ACETAMINOPHEN 5-325MG TAB PO PRN ×3 (00:52→10:32)
[2021-05-15] MEDS: ZOLPIDEM 5 MG TAB PO PRN (02:15)
--- NOTE | 2021-05-15 08:25 | Progress Note ---
Assessment and Plan - Patient Problems (1) delivery delivered Current Visit: Yes Status: Acute Plan to address problem: Awaiting Doppler study Discharge home today if within normal limits Subjective - Subjective Date of service: 05/15/21 Principal diagnosis: POD#3 s/p primary at 34 wks, cHTN with superimposed PreE, No PNC, Interval history: Patient has had significant improvement in her blood pressures. Last night she reported some calf pain. Doppler studies scheduled to be performed today. The patient's pain is well controlled. Patient reports: appetite normal, voiding normally, pain well controlled : in NICU Objective - Vital Signs Latest vital signs: Vital Signs Temp Pulse Resp BP BP Pulse Ox Pulse Ox 05/15/21 07:10 16 05/15/21 06:10 16 05/15/21 04:17 98.6 F 101 H 18 129/78 100 05/15/21 02:15 112 H 14 136/88 99 05/15/21 01:52 14 05/15/21 01:00 98.4 F 112 H 20 142/87 99 05/15/21 00:52 18 05/14/21 21:46 99 05/14/21 21:28 97.9 F 117 H 18 122/97 99 05/14/21 20:54 18 05/14/21 19:30 99 05/14/21 16:18 113 H 149/96 97 05/14/21 15:36 98.0 F 121 H 20 118/84 100 05/14/21 14:05 98.0 F 127 H 20 150/88 99 05/14/21 11:00 99 05/14/21 08:40 97.8 F 87 20 140/89 96 Intake and Output 05/14/21 05/15/21 05/15/21 22:59 06:59 14:59 Intake Total 240 480 Balance 240 480 Intake: Oral 240 Intake, Free Water 480 Other: Total, Intake Amount 240 # Voids Void 1 1 - Exam Abdomen: Present: normal appearance - Labs Labs: Abnormal lab results 05/14/21 Range/Units 15:43 WBC 23.4 H (4.5-11.0) K/mm3 MCH 27 L (28-32) pg
--- NOTE | 2021-05-15 08:29 | Discharge Summary ---
Providers - Providers Date of Admission: 05/08/21 21:52 Date of discharge: 05/15/21 Attending physician: JESSEE WHITESIDE 05/09/21 13:53 psychiatry consult [Consult to Mental Health] [CONS] Routine Reason For Exam: IUP at 34w3d, anxiety, depression, no car 05/10/21 07:00 Consult to Physician [CONS] Routine Comment: CONSULT WAS CALLED TO ANTONIA Consulting Provider: CARMEL RICE Physician Instructions: Reason For Exam: 34 wks, cHTN, headache, amphetamine use, no PNC 05/10/21 10:44 Consult to Physician [CONS] Stat Comment: consult was called to Maria Antonia Consulting Provider: KANE ENGLISH Physician Instructions: Reason For Exam: mental health 05/11/21 03:39 Consult to Weatherization Administrator [CONS] Routine Reason For Exam: 05/11/21 14:48 Consult to Case Management [CONS] Routine Services Needed at Discharge: Customer Experience Specialist Notified:: yes Additional Physician Instructions: No PNC, +THC and +amphetamines Primary care physician: STRUCTURED CABLING TECHNICIAN Hospitalization Reason for admission: other (Preeclampsia) Procedure: section, primary low transverse Discharge diagnosis: other Hospital course: The patient was admitted with findings of elevated blood pressure no care and evidence of illicit drug use. Patient received magnesium therapy and steroids prior to delivery. Her intrapartum course was complicated by nonreassuring tracing for which the patient had to undergo a primary delivery. She received magnesium for 24 hours with improvement in her blood pressures with antihypertensive meds. Condition at discharge: Good Disposition: 01 HOME / SELF CARE / HOMELESS - Discharge Diagnoses (1) delivery delivered Status: Acute Plan - Discharge Medications Prescriptions: LORazepam [Ativan] 0.5 mg PO BID PRN #10 tab PRN Reason: Anxiety Ferrous Sulfate [Feosol 325 MG tab] 325 mg PO BID #60 tablet oxyCODONE /ACETAMINOPHEN [Percocet 5/325] 1 tab PO Q6HR PRN #30 tablet PRN Reason: Pain NIFEdipine XL [Procardia Xl] 60 mg PO QDAY #30 tablet Sertraline HCl [Zoloft] 100 mg PO QDAY #30 tablet - Provider Discharge Summary Activity: no sex for 6 weeks, no heavy lifting 4 weeks, no strenuous exercise Diet: routine Instructions: routine Additional instructions: [] Smoking cessation referral if applicable(refer to patient education folder for contact #) [] Refer to [facility]'s [facility] [address] Booklet Call your doctor immediately for: * Fever > 100.5 * Heavy vaginal bleeding ( >1 pad per hour) * Severe persistent headache * Shortness of breath * Reddened, hot, painful area to leg or breast * Drainage or odor from incision. * Keep incision clean and dry at all times and follow doctor's instructions regarding bathing/showering Schedule visit in [address] [place] [address] [phone] - Follow up plan
[2021-05-15] MEDS: PANTOPRAZOLE 40 MG TAB PO SCH (08:35)
[2021-05-15 09:18] VITALS: BP 140/84
[2021-05-15] MEDS ORDERED: NIFEdipine XL 60 MG TAB PO SCH (10:00)
[2021-05-15] MEDS: PRENATAL VIT27-FE FUMARATE-FOLIC ACID VIT TAB PO SCH (10:33)
[2021-05-15] MEDS: SERTRALINE 50 MG TAB PO SCH (10:33)
--- NOTE | 2021-05-15 10:40 | Vascular Lab Report ---
DUPLEX DOPPLER LOWER EXTREMITY VEINS, LEFT INDICATION: +homans. TECHNIQUE: Duplex doppler imaging was performed through the veins of the left lower extremity using venous compression and other maneuvers. COMPARISON: No relevant prior imaging study available. FINDINGS: Left Common femoral vein: Negative. Left Superficial femoral vein: Negative. Left Popliteal vein: Negative. Left Calf veins: Negative. Additional findings: None. IMPRESSION: No sonographic evidence for DVT in the left lower extremity. Signer Name: Jamal Paula Jr, MD Signed: 05/15/2021 10:36 AM Workstation Name: [id number]
[2021-05-15] MEDS: ALPRAZolam 0.5 MG TAB PO PRN (15:38)
[2021-05-15 18:44] LABS: Bacteria,Urine 1+ /HPF (Negative); Bilirubin,Urine NEG (Negative); Blood,Urine LG (Negative); Color,Urine Yellow (Yellow); Mucus,Urine FEW /HPF; Urobilinogen,Urine < 2.0 mg/dL (<2.0)
--- NOTE | 2021-05-17 13:24 | Electrocardiograph Report ---
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
== END 2021-05-15 18:45 | disposition home or self-care (01) | DRG 765 ==
LOC: TRG 20:44 → APU 20:52 → TRG 21:51 → LD 21:52 → OB 05-12 06:16
PROVIDERS: ADMIT Obstetrics & Gynecology; ATTEND Obstetrics & Gynecology
PROC: 10D00Z1 Extraction of Products of Conception, Low, Open Approach (ICD-10-PCS; principal; 2021-05-11)
PROC: 3E0T3BZ Introduction of Anesthetic Agent into Peripheral Nerves and Plexi, Percutaneous Approach (ICD-10-PCS; 2021-05-11)
PROC: 3E0234Z Introduction of Serum, Toxoid and Vaccine into Muscle, Percutaneous Approach (ICD-10-PCS; 2021-05-12)
PROC: 3E0134Z Introduction of Serum, Toxoid and Vaccine into Subcutaneous Tissue, Percutaneous Approach (ICD-10-PCS; 2021-05-12)
DX: O11.4 Pre-existing hypertension with pre-eclampsia, complicating childbirth (principal); O41.03X0 Oligohydramnios, third trimester, not applicable or unspecified; O10.02 Pre-existing essential hypertension complicating childbirth; O36.5930 Maternal care for other known or suspected poor fetal growth, third trimester, not applicable or unspecified; F32.9 Major depressive disorder, single episode, unspecified; O76 Abnormality in fetal heart rate and rhythm complicating labor and delivery; Z20.822 Contact with and (suspected) exposure to COVID-19; F41.9 Anxiety disorder, unspecified; F12.90 Cannabis use, unspecified, uncomplicated; O99.214 Obesity complicating childbirth; O99.52 Diseases of the respiratory system complicating childbirth; O99.334 Smoking (tobacco) complicating childbirth; O99.324 Drug use complicating childbirth; F15.90 Other stimulant use, unspecified, uncomplicated; F17.200 Nicotine dependence, unspecified, uncomplicated; J45.909 Unspecified asthma, uncomplicated; Z37.0 Single live birth; Z3A.34 34 weeks gestation of pregnancy; Z90.49 Acquired absence of other specified parts of digestive tract; Z82.49 Family history of ischemic heart disease and other diseases of the circulatory system; Z88.0 Allergy status to penicillin; Z88.1 Allergy status to other antibiotic agents; Z23 Encounter for immunization
CPT/HCPCS: 36415; 59025; 59200; 76816; 76819; 80307; 81001; 82565; 82570; 82575; 83615; 83735; 84156; 84443; 84450; 84460; 84550; 85014; 85018; 85025; 85027; 86592; 86706; 86762; 86803; 86850; 86900; 86901; 87076; 87086; 87186; 87806; 88307; 93005; 99211; G0378; C9113; G0463; J0360; J0702; J1170; J2250; J2370; J2405; J2590; J2765; J3370; J3475; J3490; J7030; J7120; Q0169; U0003

== ENCOUNTER 2021-05-31 00:54 | Emergency (ER) | payer MEDICAID | END 2021-05-31 04:30 | LOC: ED 00:54 | DX: R10.9 Unspecified abdominal pain (principal); Z53.21 Procedure and treatment not carried out due to patient leaving prior to being seen by health care provider ==